=== PATIENT | female | born 2000 | race Caucasian/White ===

== ENCOUNTER 2023-03-26 08:12 | Emergency (ER) | payer OTHER, SELFPAY ==
[2023-03-26 08:21] VITALS: BP 118/83; PULSE 96; RESP 16; TEMP 37.7; O2SAT 99
--- NOTE | 2023-03-26 08:29 | ED.URI ---
HPI - URI/Sore Throat General Chief Complaint: Upper Respiratory Infection Stated Complaint: Sore Throat/Neck Pain Source: patient and RN notes reviewed History of Present Illness HPI Narrative: 22 year old female presents to urgent care with complaints of posterior, lower, neck pain that started on Thursday night. Patient is also reporting a sore throat and a dry hacky cough that was worse last night. Patient reports feeling clammy last night but denies fevers. Denies any headache, shortness of breath, chest pain, or vomiting. Denies ear pain. Patient does report appointment volleyball but denies any specific injury. Patient took ibuprofen the 1st couple days with minimal relief. Patient has also taken [id number] cold medication with minimal relief. Related Data Allergies Allergy/AdvReac Type Severity Reaction Status Date / Time No Known Allergies Allergy Verified 03/26/23 08:21 Review of Systems Review of Systems: Pertinent positives and pertinent negatives per HPI. PMFSH Comments At the time of my signature, I reviewed and agree with the nursing past medical, surgical, social, and family history. There is no relevant family history pertinent to the patient complaint. Exam Narrative: GENERAL: This is a well-nourished, well-developed patient, in no apparent distress. HEAD: normocephalic, atraumatic. EYES: Sclera clear/white. Vision is grossly intact. EARS: External ears normal, auditory canals clear and without drainage, TMs normal without perforation. Hearing grossly intact. NOSE: External nose normal with no obvious nasal discharge, nares without redness, no rhinorrhea. THROAT: Mucous membranes moist, posterior pharynx clear. NECK: Neck supple, non-tender without lymphadenopathy, masses or thyromegaly. Limited ROM in all directions. CARDIOVASCULAR: Regular rate and rhythm without murmurs, gallops, or rubs. RESPIRATORY: Clear to auscultation. Breath sounds equal bilaterally. No wheezes, rales, or rhonchi. SKIN: warm, intact with no suspicious lesions or rash, good texture and turgor. NEURO: awake, alert, and oriented to person, place and time. There were no obvious focal neurologic abnormalities. EXTREMITIES: No clubbing, cyanosis, or edema. No joint tenderness, effusion, or edema noted. BACK: Nontender without deformity or crepitus. No flank tenderness. Course Course Level of Care: Express Care Visit Vital Signs Vital signs: Vital Signs Temperature 99.9 F H 03/26/23 08:21 Pulse Rate 96 03/26/23 08:21 Respiratory Rate 16 03/26/23 08:21 Blood Pressure 118/83 03/26/23 08:21 Pulse Oximetry 99 03/26/23 08:21 Oxygen Delivery Room Air 03/26/23 08:21 Temperature 99.9 F H 03/26/23 08:21 Pulse Rate 96 03/26/23 08:21 Respiratory Rate 16 03/26/23 08:21 Blood Pressure 118/83 03/26/23 08:21 Pulse Oximetry 99 03/26/23 08:21 Oxygen Delivery Room Air 03/26/23 08:21 reviewed. MDM - URI/Sore Throat MDM Narrative Medical decision making narrative: Rapid strep is negative in the office; however we will send to the lab for confirmation; there is a small percentage chance that it can come back positive; if it is, we will call you in 2-3days; and your prescription will be call in to your pharmacy. However, there is NO indication for antibiotic at this time. -Increase your fluids and Vitamin C. -Oral rinses such as: Salt water gargles and/or may use topical anesthetic (eg. Chloraseptic spray) or lozenges to relieve dryness or throat pain. -Take tylenol and ibuprofen as needed for pain and fever as directed. -Frequent hand washing or hand vocational psychologist is one of the best ways to prevent spread of infection. -Follow up with primary care provider in 2-3 days if condition is not improving or seek ER visit if your child starts breathing fast/has trouble breathing, is not drinking enough fluids, muffle voice, difficulty opening the mouth or will not wake up or will not interact with
== END 2023-03-26 08:47 | disposition home or self-care (01) ==
PROVIDERS: Emergency Provider Nurse Practitioner Family
DX: J06.9 Acute upper respiratory infection, unspecified (principal); S16.1XXA Strain of muscle, fascia and tendon at neck level, initial encounter; X58.XXXA Exposure to other specified factors, initial encounter
CPT/HCPCS: 87081; 87880; 99213; G0463

== ENCOUNTER 2023-11-25 18:49 | Emergency (ER) | payer OTHER, SELFPAY ==
--- NOTE | ~2023-11-25 | XR_ITS ---
EXAMINATION: XR knee RT min 4V DATE: 11/25/2023 19:06 INDICATION: Right knee injury. TECHNIQUE: 4 views of right knee were obtained. COMPARISON: None. FINDINGS: Bone alignment is normal. No fracture. There is mild osteoarthritis of lateral compartment. No knee joint effusion. IMPRESSION: 1. Mild right knee osteoarthritis. Reviewed, dictated and finalized at location E. F COMMERCIAL OFFICER
[2023-11-25 18:58] VITALS: BP 131/84; PULSE 77; RESP 16; TEMP 37.1; O2SAT 100
--- NOTE | 2023-11-25 19:20 | ED.LOWEXIN ---
HPI - Extremity Injury (Lower) General Chief Complaint: Extremity Injury, Lower Stated Complaint: Right Knee Pain Time Seen by Provider: 11/25/23 19:20 Source: patient Mode of arrival: ambulatory Limitations: no limitations History of Present Illness HPI Narrative: 23-year-old female presents with complaint of right knee pain and swelling. Patient reports yesterday was normal rating an [place] fell and twisted right knee. Patient ambulatory with limp. Pain worse with flexion. States she walks and holds right leg straight pain is better. All systems reviewed and negative except as noted above. Related Data Allergies Allergy/AdvReac Type Severity Reaction Status Date / Time No Known Allergies Allergy Verified 03/26/23 08:21 Review of Systems Review of Systems: CONSTITUTIONAL: Denies fever, chills, or sweats. EYES: Denies visual changes, redness, or discharge. ENT: Denies rhinorrhea, congestion, sore throat, or otalgia. CARDIOVASCULAR: Denies chest pain, palpitations, or edema. RESPIRATORY: Denies cough or dyspnea. GASTROINTESTINAL: Denies abdominal pain, nausea, vomiting, or diarrhea. GENITOURINARY: Denies dysuria or hematuria. SKIN: Denies rash or itching. MUSCULOSKELETAL: Denies back pain . Reports pain and swelling to right knee. NEUROLOGIC: Denies headache, numbness, or weakness. PSYCHIATRIC: Denies anxiety or depression. All other systems reviewed are negative, except as documented in HPI. PMFSH Comments At time of signature, agree with nursing past medical, surgical, social and family history. There is no relevant family history pertinent to the presenting complaint. Exam Narrative: GENERAL: This is a well-nourished, well-developed patient, in no apparent distress. HEAD: normocephalic, atraumatic. EYES: PERRL. Sclera clear/white. Vision is grossly intact. EARS: External ears normal NOSE: External nose normal NECK: Neck supple, non-tender without lymphadenopathy, masses or thyromegaly. CARDIOVASCULAR: Regular rate and rhythm without murmurs, gallops, or rubs. RESPIRATORY: Clear to auscultation. Breath sounds equal bilaterally. No wheezes, rales, or rhonchi. SKIN: warm, Dry, intact with no suspicious lesions or rash, good texture and turgor. NEURO: awake, alert, and oriented to person, place and time. There were no obvious focal neurologic abnormalities. EXTREMITIES: Tenderness to medial aspect of right may and patellar tendon. Moderate swelling noted without effusion. No deformity. Negative anterior posterior drawer testing. Distal neurovascularly intact. Course Course Level of Care: Express Care Visit Vital Signs Vital signs: Vital Signs Temperature 37.1 C 11/25/23 18:58 Pulse Rate 77 11/25/23 18:58 Respiratory Rate 16 11/25/23 18:58 Blood Pressure 131/84 11/25/23 18:58 Pulse Oximetry 100 11/25/23 18:58 Oxygen Delivery Room Air 11/25/23 18:58 Temperature 37.1 C 11/25/23 18:58 Pulse Rate 77 11/25/23 18:58 Respiratory Rate 16 11/25/23 18:58 Blood Pressure 131/84 11/25/23 18:58 Pulse Oximetry 100 11/25/23 18:58 Oxygen Delivery Room Air 11/25/23 18:58 Reviewed MDM - Extremity Injury (Lower) MDM Narrative Medical decision making narrative: Patient is aware of diagnosis, understands and agrees to treatment plan. Anticipatory guidance given. Patient agrees to follow-up as directed and is aware of reasons to seek care at the emergency department. Portions of this record may have been created with voice recognition software discussed x-ray results with patient. Patient does not have primary care physician for follow-up. Patient's mother states they call Dr. Dmoinguez's office today and they are waiting for patient's x-ray results From [facility]. Dr. Dominguez going out of town but states his on-call partner will be able to see patient next week. Differential Diagnosis Differential diagnosis: Likely other ( Knee sprain) Jacqueline
== END 2023-11-25 19:30 | disposition home or self-care (01) ==
PROVIDERS: Emergency Provider Nurse Practitioner Family
DX: S83.91XA Sprain of unspecified site of right knee, initial encounter (principal); W19.XXXA Unspecified fall, initial encounter
CPT/HCPCS: 73564; 99213; G0463

== ENCOUNTER 2023-12-01 11:06 | Outpatient (CLI) | payer OTHER, SELFPAY ==
--- NOTE | ~2023-12-01 | MR_ITS ---
EXAMINATION: MR knee RT wo con DATE: 12/01/2023 11:41 INDICATION: Right medial collateral ligament sprain TECHNIQUE: Magnetic resonance imaging (MRI) of the right knee was performed without intravenous contr ast. Sequences included coronal PD-weighted FSE, coronal PD-weighted FS FSE, sagittal T2-weighted FS E, sagittal PD-weighted FS FSE and axial PD weighted fat saturated FSE. COMPARISON: None. FINDINGS: Medial compartment: Medial meniscus is normal. Articular cartilage is normal. Lateral compartment: Lateral meniscus is normal.Increased fluid signal extending along a curvilinear low signal intensity fracture line underlying approximately 1.8 x 1.4 cm region at the lateral aspect of the lateral tibia l plateau. The fracture line approaches the articular cortex. No discrete interruption or abnormal an gulation of the low signal intensity articular cortex is identified. Configuration would be consisten t with a valgus injury with lateral condylar impaction upon the lateral tibial plateau. Articular car tilage is normal. Patellofemoral compartment: Articular cartilage is normal. Ligaments and tendons: Anterior and posterior cruciate ligaments are normal. There is mild increased signal along the superf icial margin of the medial collateral ligament and extending anteriorly over the medial patellofemora l retinaculum which appear otherwise intact consistent with low-grade sprain. The fibular collateral ligament complexes normal. The patellar and quadriceps tendons are normal. The visualized medial and lateral hamstring tendons as well as the iliotibial band are normal. Fluid: Physiologic amount of fluid in the joint space. No loose osteochondral bodies identified. Osseous/other: Siphon the previous noted subarticular impaction fracture at the lateral tibial plateau there is norm al marrow signal. No other fractures or pathologic marrow replacing process. IMPRESSION: Valgus injury pattern with low-grade sprain of the medial collateral ligament and with nondisplaced i mpaction fracture underlying the lateral aspect lateral tibial plateau. Reviewed, dictated and finalized at location A. TRANSIT OPERATOR IMPRESSION: Valgus injury pattern with low-grade sprain of the medial collateral ligament a nd with nondisplaced impaction fracture underlying the lateral aspect lateral t ibial plateau.
== END 2023-12-01 11:07 ==
LOC: GOSHIMG 11:07
PROVIDERS: PCP Orthopaedic Surgery; Visit Provider Orthopaedic Surgery
DX: S82.124A Nondisplaced fracture of lateral condyle of right tibia, initial encounter for closed fracture (principal); X58.XXXA Exposure to other specified factors, initial encounter
CPT/HCPCS: 73721